=== PATIENT | male | born 1955 | race Caucasian/White ===

== ENCOUNTER 2018-09-10 07:13 | Day surgery (SDC) | payer MEDICARE ==
[2018-09-08 15:19] LABS: BASOPHILS % (AUTO) 0.8 % (0.0-5.0); EOSINOPHILS % (AUTO) 1.7 % (0.0-8.0); HEMATOCRIT 44.1 % (42-54); LYMPHOCYTES % (AUTO) 23.9 % (21.0-51.0); MEAN CORPUSCULAR HEMOGLOBIN 30.6 pg (27.0-33.0); MEAN CORPUSCULAR HGB CONC 32.9 g/dL (32.0-36.0); MEAN CORPUSCULAR VOLUME 92.9 fL (79-99); MONOCYTES % (AUTO) 14.3 % (3.0-13.0); NEUTROPHILS % (AUTO) 59.3 % (40.0-77.0); NUCLEATED RED BLOOD CELLS 0.1 % (0.0-0.19); PLATELET COUNT (AUTO) 161 K/uL (130-400); RED BLOOD CELL COUNT(AUTO) 4.75 MIL/uL (4.50-6.20); RED CELL DISTRIBUTION WIDTH 15.2 % (11.0-15.5); WHITE BLOOD COUNT (AUTO) 8.7 K/uL (4.8-10.8)
[2018-09-08 15:24] VITALS: BP 137/73
[2018-09-08 15:27] LABS: CREATININE 1.6 mg/dL (0.5-1.5); POTASSIUM 3.1 mmol/L (3.5-5.1)
--- NOTE | 2018-09-09 16:41 | NUR ---
ABNORMAL LABS REPORTED AND FAXED ABNORMAL LABS POTASSIUM 3.1- BMP TO DR. HARRELL OFFICE. SPOKE WITH GLENN. PER DR. WEBSTER NO NEW ORDERS.
[~2018-09-10] VITALS: Ht 177.8 cm; Wt 140.2 kg
[2018-09-10] VITALS (16 sets, daily range): BP systolic 117–145; BP diastolic 65–88
[~2018-09-10 07:13] MED LIST: BENA10TA10 PO; CEFTRIAXONE SODIUM 1 GM IVP SCH; LEVO125T95 PO; NAPR-1023 PO; TAMS0.4C32 PO; TRAM50TA4 PO; [UNRECOGNIZED DRUG - OTHER] PO
--- NOTE | 2018-09-10 08:05 | NUR ---
VALUABLES: CLOTHING, MEDICATIONS, GLASSES, CELL PHONE, WALLET AND CANE GIVEN TO .
[2018-09-10] MEDS ORDERED: LACTATED RINGERS 1000ML 1,000 ML IV ONE (08:32)
[2018-09-10] MEDS ORDERED: CEFTRIAXONE SODIUM 1 GM ONE (08:32)
--- NOTE | 2018-09-10 08:34 | NUR ---
VALUABLES: CLOTHING, CANE, GLASSES, MEDICATIONS, WALLET AND CELL PHONE GIVEN TO : DAVID HURT. CPAP MACHINE SEND TO PACU
[2018-09-10] MEDS ORDERED: NIFE90TA4 PO (08:40)
[2018-09-10] MEDS ORDERED: CIPR-278 PO (08:40)
[2018-09-10] MEDS ORDERED: IOHEXOL-350 50ML VIAL IV ONE (09:28)
[2018-09-10] MEDS ORDERED: PROPOFOL 10 MG/ML 20ML VIAL IV ONE (09:35)
[2018-09-10] MEDS ORDERED: FENTANYL CITRATE PF 50 MCG/1 ML 5ML AMP IV ONE (09:37)
[2018-09-10] MEDS ORDERED: MIDAZOLAM HCL 1 MG/ML 2ML VIAL ONE (09:39)
[2018-09-10] MEDS ORDERED: DEXAMETHASONE SOD PHOSPHATE 10MG/ML 1ML VIAL ONE (10:33)
[2018-09-10] MEDS ORDERED: NEOSTIGMINE 5MG/5ML SYR IV ONE (10:33)
[2018-09-10] MEDS ORDERED: GLYCOPYRROLATE 1 MG/5 ML SYRINGE ONE (10:33)
--- NOTE | 2018-09-10 12:05 | NUR ---
ASSESSMENT RECEIVED PT FROM PACU STAFF MESHA HAINES. PT DOING WELL. 16F FC DRAINING TO BEDSIDE VIA GRAVITY. CLEAR, RED URINE IN BAG. AT BEDSIDE.
--- NOTE | 2018-09-10 12:20 | NUR ---
FC 16F FC DISCONTINUED USING ASEPTIC TECHNIQUE. 700ML OF RED CLEAR URINE IN FC. PT TOLERATED PROCEDURE WELL. INSTRUCTED PT NEEDING TO VOID PRIOR TO DISCHARGE. PT AND VERBALIZED UNDERSTANDING.
[2018-09-10] MEDS ORDERED: PHENAZOPYRIDINE HCL 200 MG TABLET PO SCH (12:45)
--- NOTE | 2018-09-10 13:30 | NUR ---
DISCHARGE ORAL AND WRITTEN DISCHARGE INSTRUCTIONS TO PT AND PTS ALONG WITH PRESCRIPTION. NO OTHER QUESTIONS AT THIS TIME.
== END 2018-09-10 13:40 | disposition home or self-care (01) ==
LOC: DAH 07:13
PROVIDERS: ATTEND Urology
DX: N13.2 Hydronephrosis with renal and ureteral calculous obstruction (principal); N40.1 Benign prostatic hyperplasia with lower urinary tract symptoms; N21.0 Calculus in bladder; I10 Essential (primary) hypertension; Z98.890 Other specified postprocedural states; Z79.899 Other long term (current) drug therapy; Z88.8 Allergy status to other drugs, medicaments and biological substances; Z85.850 Personal history of malignant neoplasm of thyroid; G47.30 Sleep apnea, unspecified
CPT/HCPCS: 36415; 52317; 52356; 76000; 80048; 85025; 93005; A4218; A4354; A4358; A4600; C1758; C1769; C2617; J0696; J1100; J2250; J2704; J2710; J3010; J3490; J7030; J7120; Q9967

== ENCOUNTER 2018-09-11 09:30 | Emergency (ER) | payer MEDICARE ==
[~2018-09-11 09:30] MED LIST changes: -CEFTRIAXONE SODIUM 1 GM IVP SCH; +CIPR-278 PO; +NIFE90TA4 PO
[2018-09-11] MEDS ORDERED: ONDANSETRON HCL 4 MG/2 ML VIAL ONE (10:29)
[2018-09-11] MEDS ORDERED: MORPHINE SULFATE 4 MG/1ML SYG ONE (10:30)
[2018-09-11] MEDS ORDERED: SODIUM CHLORIDE 0.9% 1000ML 1,000 ML IV ONE (10:30)
[2018-09-11 11:11] LABS: APPEARANCE,URINE CLEAR (CLEAR); BILIRUBIN,URINE NEGATIVE (NEGATIVE); COLOR,URINE ORANGE (YELLOW); GLUCOSE, URINE (UA) 100 mg/dL (NEGATIVE); KETONES,URINE NEGATIVE (NEGATIVE); LEUKOCYTE ESTERASE ,URINE SMALL (NEGATIVE); NITRATE,URINE POSITIVE (NEGATIVE); OCCULT BLOOD,URINE LARGE (NEGATIVE); PH,URINE 6.5 (5.0-8.0); PROTEIN,URINE 100 (NEGATIVE)
[2018-09-11 11:16] LABS: BACTERIA,URINE Rare /HPF (None Seen); RBC,URINE TNTC /HPF (0-1); SQUAMOUS EPITHELIAL CELL,UR Rare /HPF (0-2)
[2018-09-11 11:19] LABS: BASOPHILS % (AUTO) 0.6 % (0.0-5.0); EOSINOPHILS % (AUTO) 0.2 % (0.0-8.0); HEMATOCRIT 44.3 % (42-54); LYMPHOCYTES % (AUTO) 14.9 % (21.0-51.0); MEAN CORPUSCULAR HGB CONC 33.1 g/dL (32.0-36.0); MEAN CORPUSCULAR VOLUME 93.7 fL (79-99); MONOCYTES % (AUTO) 10.8 % (3.0-13.0); NEUTROPHILS % (AUTO) 73.5 % (40.0-77.0); PLATELET COUNT (AUTO) 157 K/uL (130-400); RED BLOOD CELL COUNT(AUTO) 4.73 MIL/uL (4.50-6.20); RED CELL DISTRIBUTION WIDTH 15.1 % (11.0-15.5)
[2018-09-11 11:25] LABS: CREATININE 1.3 mg/dL (0.5-1.5); POTASSIUM 3.2 mmol/L (3.5-5.1)
[2018-09-11 11:30] LABS: BILIRUBIN,TOTAL 0.8 mg/dL (0.2-1.0); TOTAL PROTEIN, SERUM 8.1 g/dL (6.0-8.3)
[2018-09-11 11:31] LABS: INR 1.07 (0.85-1.15); PROTHROMBIN TIME 11.2 SEC (9.6-11.6)
[2018-09-11] MEDS ORDERED: CEFTRIAXONE SODIUM 1 GM ONE (12:58)
== END 2018-09-11 14:26 | disposition home or self-care (01) ==
LOC: EDH 09:30
DX: N39.0 Urinary tract infection, site not specified (principal); R33.9 Retention of urine, unspecified; I10 Essential (primary) hypertension; E78.5 Hyperlipidemia, unspecified; R79.1 Abnormal coagulation profile; Z88.6 Allergy status to analgesic agent; Z87.891 Personal history of nicotine dependence
CPT/HCPCS: 36415; 51702; 80053; 81001; 85025; 85610; 85730; 87088; 96374; 96375; 99284; J0696; J2270; J2405; J7030